=== PATIENT | female | born 1995 | race Caucasian/White ===

== ENCOUNTER → 2019-03-10 | Day surgery (SDC) | payer OTHER ==
--- NOTE | 2019-03-09 21:26 | Pre Op History & Physical ---
CHIEF COMPLAINT: Lesion on the paramedian occipital area and midline forehead for over a year. HISTORY OF PRESENT ILLNESS: This 24-year-old female has a lesion on the right side inferior to the occipital area for more than a year. The lesion has been increasing in size. The patient also has a lesion in the hairline in the midline for about past 2 months. The patient noticed that this lesion has not changed. It is not irritating to the patient. The patient had a CT scan of the neck done in 2018. The patient had small jugulodigastric nodes on both sides. At that time, no other abnormality was noted. The patient and her family are concerned because her mother apparently carries the gene of paraganglioma-pheochromocytoma syndrome. The patient has not been tested herself. REVIEW OF SYSTEMS: System review showed no recent cardiovascular, respiratory, or GI problem. PAST MEDICAL HISTORY: The patient has no significant medical problem. PAST SURGICAL HISTORY: The patient had previous surgery on the right arm and nasal surgery. ALLERGIES: SHE IS ALLERGIC TO PORK AND SEAFOOD. MEDICATIONS: She is not on any regular medication. SOCIAL HISTORY: She is a nonsmoker and a social drinker. FAMILY HISTORY: Noncontributory. PHYSICAL EXAMINATION: VITAL SIGNS: On examination, the patient's vital signs were within normal limits. She was seen with her mother. EAR: Showed normal tympanic membrane bilaterally. NASAL: Showed deviated nasal septum on left side about 20%. MUSCULOSKELETAL: Showed the patient has a 1 to 1.5 cm lesions in the posterior neck just inferior to the occipital area paramedian on the right side, and a 2.5 cm lesion in the midline of the forehead just inside the hairline. No other abnormality was noted. OROPHARYNX AND ORAL CAVITY: Showed 2+ tonsils bilaterally with Mallampati level 2. NECK: Showed no lymph node. No thyroid palpable. CHEST: Showed good air entry bilaterally. CARDIOVASCULAR: Showed S1, S2. No murmur noted. ASSESSMENT/PLAN: Hattie has a lesion in the posterior neck and also in the midline forehead, which has been resistant to conservative therapy. The suggested treatment is excision of these lesions with appropriate closure and other necessary procedure. The lesion in the neck is subcutaneous. Both of these lesions are subcutaneous. The complication of procedure includes, but not limited to bleeding, infection, facial nerve injury, accessory nerve injury, greater auricular nerve injury, change in sensation, trouble moving the neck, wound breakdown, poor cosmetic result, hair loss, persistent recurrence of the problem. Alternatives will be continue observation, excision of the lesion in the office setting. I have discussed at length with the patient and her mother, and reassured them that the lesion that she has is very unlikely to be related to the paraganglioma-pheochromocytoma syndrome. The patient and her mother have elected to undergo surgical procedure. MD PAMELA Mclaughlin/MODL /[id number]
[~2019-03-10] MED LIST: ATROPINE SULFATE 1 MG/ML VIAL ONE; DEXAMETHASONE SOD PHOS INJ 4 MG/ML VIAL ONE; FENTANYL CITRATE/PF 100MCG/2 ML INJ ONE; KETOROLAC TROMETHAMINE 30 MG/ML VIAL ONE; LIDOCAINE 1% W/EPINEPHRINE 20 ML VIAL ONE; LIDOCAINE HCL 2% LOCAL INJ 5 ML SDV VIAL INJ ONE; MIDAZOLAM HCL 2 MG/2 ML VIAL ONE; NEOSTIGMINE 1 MG/ML 10ML VIAL ONE; NEOSTIGMINE 5 MG/5ML SYR ONE; ONDANSETRON HCL INJ 2MG/ML 2ML 2 MG/ML VIAL ONE; PROPOFOL IV EMULSION 10 MG/ML 20 ML VIAL ONE; ROCURONIUM BROMIDE 10 MG/ML 5ML VIAL ONE; SEVOFLURANE INHAL SOLN 250 ML PEN BTL ONE
[2019-03-10 11:43] VITALS: BP 114/76
--- NOTE | 2019-03-10 21:21 | Operative Report ---
DATE OF PROCEDURE: 03/10/2019 SURGEON: Cresencio Badillo MD CHIEF COMPLAINT: Lesion in the paramedian posterior neck and also midline forehead just inside the hairline. POSTOPERATIVE DIAGNOSIS: Lesion in the paramedian posterior neck and also midline forehead just inside the hairline. OPERATIVE PROCEDURES: 1. Excision of paramedian right posterior neck lesion and also excision of posterior neck lesion subcutaneously with appropriate closure. 2. Excision of subcutaneous midline forehead lesion inside the hairline with appropriate closure. ANESTHESIA: Dr. Bond. HISTORY OF PRESENT ILLNESS: This 24-year-old female noted a lesion in the paramedian posterior neck for more than a year. The lesion has not changed, has not been irritating, but it persists. The patient also was noted to have a lesion in the inside her hairline in the midline of the forehead for few months. She has a family history of pheochromocytoma, paraganglioma syndrome, which make the patient anxious. It was decided the excision of the above two lesions and other necessary procedure will be beneficial for her. DESCRIPTION OF PROCEDURE: The patient was taken to the operating room, put under general anesthesia, endotracheally intubated. The right posterior neck lesion was approached first. The patient was put in left lateral decubitus position. The posterior neck was prepped and draped in a sterile fashion. The area was injected with 1% Xylocaine with 1:100,000 epinephrine for hemostasis. An incision was made just inside the posterior hairline, where the lesion was palpable subcutaneously. Dissection was carried down to the subcutaneous plane. With some difficulty, the lesion was able to be located and dissected off, it looks like a lymph node. This was sent for permanent section. Closure of the area was undertaken. The area was irrigated with copious amount of normal saline and any bleeding area controlled using bipolar cautery. The deep layer of the incision was closed using 0 Vicryl suture in interrupted fashion. The superficial layer was closed using 4-0 Prolene suture in the interrupted fashion. The forehead lesion was addressed. The patient was repositioned. The forehead area was prepped and draped in a sterile fashion. The area was injected with 1% Xylocaine with 1:100,000 epinephrine for hemostasis. The lesion was located and again noted to be subcutaneous. The anterior-posterior incision was made and dissection was carried down to the subcutaneous area. The lesion was located, it looked and felt like another lymphadenopathy; this was removed along with a small ellipse of skin. Closure of this area was undertaken. The area was irrigated with copious amount of normal saline. Again any bleeding area was controlled using the bipolar cautery. The incision was closed using 0 Prolene suture in the interrupted fashion. The patient tolerated the above procedure well with minimal blood loss. She was given 20 mg of Decadron intraoperatively. The patient was able to be transferred to recovery room in stable condition. MD ALISTAIR MclaguhlinH/MODL /[id number]
== END | disposition home or self-care (01) ==
LOC: OR 07:55
PROVIDERS: ATTEND Otolaryngology Otolaryngology/Facial Plastic Surgery
DX: L72.12 Trichodermal cyst (principal); R22.0 Localized swelling, mass and lump, head; Z91.013 Allergy to seafood; Z91.018 Allergy to other foods
CPT/HCPCS: 11422; 11441; 12041; 81025; 88305; J0461; J1100; J1885; J2001; J2250; J2405; J2704; J2710; J3010; 88304